=== PATIENT | female | born 1965 | race Caucasian/White ===

== ENCOUNTER 2017-08-03 13:02 | Outpatient (CLI) | payer OTHER | END 2017-08-03 19:03 | disposition home or self-care (01) | LOC: SMA 13:02 | PROVIDERS: ATTEND Obstetrics & Gynecology | DX: Z12.31 Encounter for screening mammogram for malignant neoplasm of breast (principal) | CPT/HCPCS: 77067 ==

== ENCOUNTER 2017-08-20 13:04 | Outpatient (CLI) | payer OTHER | END 2017-08-20 20:36 | disposition home or self-care (01) | LOC: SMA 13:04 | DX: R92.8 Other abnormal and inconclusive findings on diagnostic imaging of breast (principal) | CPT/HCPCS: 77065 ==

== ENCOUNTER 2019-04-28 10:23 | Outpatient (CLI) | payer BC | END 2019-04-28 18:33 | disposition home or self-care (01) | LOC: SMA 10:23 | PROVIDERS: ATTEND Obstetrics & Gynecology | DX: Z12.31 Encounter for screening mammogram for malignant neoplasm of breast (principal) | CPT/HCPCS: 77067 ==